=== PATIENT | male | born 1955 | race Caucasian/White ===

== ENCOUNTER → 2021-10-24 | Outpatient (CLI) | payer OTHER | LOC: M PLAIMG 10:08 | PROVIDERS: ATTEND Internal Medicine Pulmonary Disease | DX: R91.8 Other nonspecific abnormal finding of lung field (principal) ==

== ENCOUNTER → 2021-11-08 | Outpatient (CLI) | payer OTHER ==
[2021-11-08 09:34] LABS: ABG BASE EXCESS 0.5 (-2.0-2.0); ABG HCO3 24.8 MEQ/L (22.0-26.0); ABG O2 SATURATION 96.9 % (95.0-99.0); ABG PARTIAL PRESSURE CO2 38.9 mmHg (35.0-45.0); ABG PARTIAL PRESSURE O2 83.1 mmHg (75.0-100.0); ABG STANDARD HCO3 24.9 MEQ/L (22.0-26.0); ABG pH (ARTERIAL) 7.422 UNITS (7.350-7.450)
--- NOTE | 2021-11-08 10:03 | PFTRPT ---
Site: [facility], [address] [place] [address], [address] ID: [id number] Name: BEN ZAMBRANO Visit Date: 11/08/2021 Second ID: [id number] Referring Doctor: Lukas Estevez M.D. Reviewing Doctor: Benito Nicole MD Job Training Supervisor: Holli WORKMAN RRT Age: 66 : 1955 Sex: Male Race: Height: 69.00 Inches Weight: 208.00 Lbs BSA: 2.10 Order IDs: [id number] Requested Test(s): <RESP-PFT.DLCO> Diagnosis: R91.8 test meet the ATS standards for acceptability and repeatability. Pt was given four puffs of albuterol for post bronchodilator. Review Status: Not Reviewed Pre-Bronch Post-Bronch Pred Actual %Pred Actual %Chng SPIROMETRY FVC (L) 4.47 3.09 69 3.42 10 FEV1 (L) 3.35 1.91 57 2.07 8 FEV1/FVC (%) 75 62 82 61 -2 FEF 25% (L/sec) 7.44 2.53 33 3.14 24 FEF 50% (L/sec) 4.57 1.25 27 1.50 19 FEF 75% (L/sec) 1.36 0.47 34 0.61 29 FEF 25-75% (L/sec) 2.68 1.03 38 1.33 29 FEF Max (L/sec) 8.68 5.48 63 5.89 7 FIVC (L) 3.19 3.45 8 FIF 50% (L/sec) 4.62 3.58 77 6.52 82 FIF Max (L/sec) 3.86 6.76 75 MVV (L/min) 132 60 45 Expiratory Time (sec) 6.86 6.18 -9 Back Extrap Vol (L) 0.06 0.09 56 Time To FEFmax (sec) 0.063 0.066 5 LUNG VOLUMES SVC (L) 4.53 3.79 83 IC (L) 3.25 2.17 66 ERV (L) 1.29 1.62 125 TGV (L) 3.56 5.02 141 RV (Pleth) (L) 2.27 3.40 149 TLC (Pleth) (L) 6.80 7.19 105 RV/TLC (Pleth) (%) 34 47 139 DIFFUSION DLCOunc (ml/min/mmHg) 27.10 13.22 48 DLCOcor (ml/min/mmHg) 27.10 13.58 50 DL/VA (ml/min/mmHg/L) 3.98 2.28 57 VA (L) 6.80 5.96 87 BHT (sec) 10.41 IVC (L) 3.39 TLC (SB) (L) 6.11 AIRWAYS RESISTANCE Raw (cmH2O/L/s) 1.45 1.35 93 Gaw (L/s/cmH2O) 1.03 0.75 73 sRaw (cmH2O*s) 4.76 6.53 137 sGaw (1/cmH2O*s) 0.20 0.16 76 BLOOD GASES Hgb (gm/dL) 13.7
== END ==
LOC: M CARPUL 09:05
PROVIDERS: ATTEND Internal Medicine Pulmonary Disease
DX: R91.8 Other nonspecific abnormal finding of lung field (principal)